=== PATIENT | male | born 1985 | race Caucasian/White ===

== ENCOUNTER 2019-02-14 09:15 | Emergency (ER) | payer MEDICAID ==
[~2019-02-14] VITALS: Ht 172.7 cm; Wt 73.5 kg
[2019-02-14 11:54] VITALS: BP 127/73
== END 2019-02-14 13:04 | disposition home or self-care (01) ==
LOC: ED 10:30
DX: L02.415 Cutaneous abscess of right lower limb (principal); L03.115 Cellulitis of right lower limb; F17.200 Nicotine dependence, unspecified, uncomplicated
CPT/HCPCS: 10060; 96365; 99284

== ENCOUNTER 2019-02-16 06:59 | Emergency (ER) | payer MEDICAID ==
[~2019-02-16] VITALS: Ht 172.7 cm; Wt 74.7 kg
[2019-02-16 07:05] VITALS: BP 122/76
== END 2019-02-16 07:27 | disposition home or self-care (01) ==
LOC: ED 07:17
DX: L02.415 Cutaneous abscess of right lower limb (principal)
CPT/HCPCS: 99283

== ENCOUNTER 2019-02-19 08:47 | Emergency (ER) | payer MEDICAID ==
[~2019-02-19] VITALS: Ht 172.7 cm; Wt 77.3 kg
[2019-02-19 08:50] VITALS: BP 114/55
== END 2019-02-19 09:27 | disposition home or self-care (01) ==
LOC: ED 09:15
DX: Z48.01 Encounter for change or removal of surgical wound dressing (principal); Z88.8 Allergy status to other drugs, medicaments and biological substances
CPT/HCPCS: 99281

== ENCOUNTER 2020-03-15 14:13 | Emergency (ER) | payer MEDICAID ==
[~2020-03-15] VITALS: Ht 172.7 cm; Wt 70.3 kg
[2020-03-15 14:22] VITALS: BP 146/87
--- NOTE | 2020-03-15 14:48 | NUR ---
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 LILIANA
[2020-03-15 15:23] LABS: BASOPHILS # (AUTO) 0.03 x10^3/uL (0-0.1); BASOPHILS % (AUTO) 0 % (0-1); EOSINOPHILS # (AUTO) 0.13 x10^3/uL (0-0.4); EOSINOPHILS % (AUTO) 2 % (1-7); LYMPHOCYTES # (AUTO) 3.75 x10^3/uL (1-3.4); LYMPHOCYTES % (AUTO) 42 % (22-44); MD NO; MEAN CORPUSCULAR HEMOGLOBIN 28.7 pg (27.5-34.5); MEAN CORPUSCULAR HGB CONC 32.9 g/dL (33.2-36.2); MEAN CORPUSCULAR VOLUME 87.2 fL (81-97); MEAN PLATELET VOLUME 7.2 fL (7.4-10.4); MONOCYTES # (AUTO) 0.56 x10^3/uL (0.2-0.8); MONOCYTES % (AUTO) 6 % (2-9); NEUTROPHILS # (AUTO) 4.36 x10^3/uL (1.8-6.8); NEUTROPHILS % (AUTO) 49 % (42-75); PLATELET COUNT 304 x10^3/uL (130-400); RED CELL DISTRIBUTION WIDTH 14.1 % (9.4-14.8)
[2020-03-15] MEDS ORDERED: LORazepam 1MG TABLET PO ONE (15:30)
[2020-03-15] MEDS ORDERED: ONDANSETRON ODT 4 MG PO ONE (15:30)
[2020-03-15 15:35] LABS: ALANINE AMINOTRANSFERASE 19 U/L (12-78); ALBUMIN 3.8 g/dL (3.4-5.0); ANION GAP 9 mmol/L (5-15); CALCIUM 8.9 mg/dL (8.5-10.1); CHLORIDE 112 mmol/L (98-107); CREATININE 0.84 mg/dL (0.7-1.3); SALICYLATE LEVEL 3.2 mg/dL (2.8-20.0)
[2020-03-15 15:37] LABS: ALKALINE PHOSPHATASE 83 U/L (45-117); BILIRUBIN,TOTAL 0.3 mg/dL (0.2-1.0); TOTAL PROTEIN 6.8 g/dL (6.4-8.2)
--- NOTE | 2020-03-15 15:43 | NUR ---
PT AWARE OF NEED FOR URINE SAMPLE. STATES HE IS UNABLE TO PROVIDE ONE DUE TO NOT DRINKING MUCH FOR THE PAST FEW DAYS. PROVIDED WITH BOTTLED JENNINGS AND JUICE PER REQUEST. URINE CUP REMAINS AT BEDSIDE. CALL LIGHT IN REACH.
[2020-03-15] MEDS ORDERED: LORazepam 1MG TABLET ONE (15:48)
[2020-03-15] MEDS ORDERED: ONDANSETRON ODT 4 MG ONE (15:48)
== END 2020-03-15 16:27 | disposition home or self-care (01) ==
LOC: ED 14:58
DX: F11.10 Opioid abuse, uncomplicated (principal); R00.0 Tachycardia, unspecified; F17.200 Nicotine dependence, unspecified, uncomplicated
CPT/HCPCS: 36415; 80053; 80307; 85025; 99283; Q0162

== ENCOUNTER 2020-03-29 16:16 | Emergency (ER) | payer MEDICAID ==
[~2020-03-29] VITALS: Ht 172.7 cm; Wt 70.0 kg
[2020-03-29 16:17] VITALS: BP 134/84
--- NOTE | 2020-03-29 16:23 | NUR ---
PT VERBALIZED "I CAN MAKE A QUICK BUCKET IN 10 MINUTES, DO YOU THINK YOU GUYS CAN GET ME IN AND OUT IN 10MINUTES?" PT INFORMED UNLIKELY AND HE CAN LEAVE IF HE WANTED TO BUT HAD CHECKED IN AND WOULD NEED TO CHECK IN AGAIN.
== END 2020-03-29 17:51 | disposition home or self-care (01) ==
LOC: ED 17:45
DX: R23.4 Changes in skin texture (principal); R51 Headache; F17.210 Nicotine dependence, cigarettes, uncomplicated
CPT/HCPCS: 87070; 87077; 87147; 87186; 87205; 99283

== ENCOUNTER 2020-04-01 22:44 | Emergency (ER) | payer MEDICAID ==
[~2020-04-01] VITALS: Ht 175.3 cm; Wt 70.9 kg
[2020-04-01 23:10] VITALS: BP 144/83
[2020-04-02] MEDS ORDERED: SODIUM CHLORIDE FLUSH 10ML SYR IVF ONE
[2020-04-02 00:28] LABS: BASOPHILS # (AUTO) 0.06 x10^3/uL (0-0.1); BASOPHILS % (AUTO) 0 % (0-1); EOSINOPHILS # (AUTO) 0.31 x10^3/uL (0-0.4); EOSINOPHILS % (AUTO) 2 % (1-7); LYMPHOCYTES % (AUTO) 26 % (22-44); MD NO; MEAN CORPUSCULAR HEMOGLOBIN 28.6 pg (27.5-34.5); MEAN CORPUSCULAR HGB CONC 32.7 g/dL (33.2-36.2); MEAN CORPUSCULAR VOLUME 87.3 fL (81-97); MONOCYTES # (AUTO) 0.86 x10^3/uL (0.2-0.8); MONOCYTES % (AUTO) 6 % (2-9); NEUTROPHILS # (AUTO) 9.38 x10^3/uL (1.8-6.8); NEUTROPHILS % (AUTO) 65 % (42-75); PLATELET COUNT 314 x10^3/uL (130-400); RED BLOOD COUNT 5.08 x10^6/uL (4.38-5.82); RED CELL DISTRIBUTION WIDTH 14.1 % (9.4-14.8)
[2020-04-02 00:34] LABS: ALBUMIN 3.6 g/dL (3.4-5.0); ANION GAP 8 mmol/L (5-15); CALCIUM 9.1 mg/dL (8.5-10.1); CHLORIDE 109 mmol/L (98-107); CREATININE 1.08 mg/dL (0.7-1.3)
--- NOTE | 2020-04-02 02:11 | NUR ---
PT CALLED FOR ROOM, NOT IN LOBBY, BATHROOM CHECKED, OUTSIDE CHECKED.
--- NOTE | 2020-04-02 03:00 | NUR ---
PT CALLED FROM LOBBY, NOT THERE.
--- NOTE | 2020-04-02 03:14 | NUR ---
PT NOT IN LOBBY AT THIS TIME
== END 2020-04-02 03:16 | disposition left against medical advice (07) ==
LOC: ED 04-02 03:00
DX: L03.211 Cellulitis of face (principal)
CPT/HCPCS: 36415; 80048; 82040; 85025; 87040; 99283

== ENCOUNTER 2020-04-02 14:00 | Inpatient (IN) | payer MEDICAID ==
[~2020-04-02] VITALS: Ht 172.7 cm; Wt 71.0 kg
--- NOTE | 2020-04-02 14:40 | NUR ---
First contact with pt. Pt c/o L sided facial cellulitis x2 weeks. Pt states he has been seen in multiple facilites over the last 2 weeks and taken multiple different courses of abx without relief. 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 Pt speaking in full sentences, resp even and unlabored, NADN. Pt with redness and swelling over L cheekbone. Pt reports no changes in respiratory effort or vision. POC discussed with pt. Pt denies other needs.
[2020-04-02] MEDS ORDERED: CLINDAMYCIN PMX 600MG/50ML 50 ML IV ONE (15:30)
[2020-04-02] MEDS ORDERED: SODIUM CHLORIDE FLUSH 10ML SYR IVF ONE (15:30)
[2020-04-02] MEDS ORDERED: SODIUM CHLORIDE 0.9% 1,000ML IVBOLUS ONE (15:30)
[2020-04-02] MEDS ORDERED: CLINDAMYCIN PMX 600MG/50ML 50 ML ONE (15:43)
[2020-04-02 16:04] LABS: BASOPHILS # (AUTO) 0.05 x10^3/uL (0-0.1); BASOPHILS % (AUTO) 1 % (0-1); EOSINOPHILS # (AUTO) 0.18 x10^3/uL (0-0.4); EOSINOPHILS % (AUTO) 2 % (1-7); LYMPHOCYTES # (AUTO) 3.21 x10^3/uL (1-3.4); LYMPHOCYTES % (AUTO) 31 % (22-44); MD NO; MEAN CORPUSCULAR HEMOGLOBIN 28.6 pg (27.5-34.5); MEAN CORPUSCULAR HGB CONC 32.5 g/dL (33.2-36.2); MEAN CORPUSCULAR VOLUME 87.9 fL (81-97); MEAN PLATELET VOLUME 7.3 fL (7.4-10.4); MONOCYTES # (AUTO) 0.87 x10^3/uL (0.2-0.8); MONOCYTES % (AUTO) 8 % (2-9); NEUTROPHILS # (AUTO) 6.17 x10^3/uL (1.8-6.8); NEUTROPHILS % (AUTO) 59 % (42-75); PLATELET COUNT 315 x10^3/uL (130-400)
[2020-04-02 16:10] LABS: ANION GAP 8 mmol/L (5-15); CALCIUM 9.5 mg/dL (8.5-10.1); CHLORIDE 106 mmol/L (98-107); CREATININE 0.91 mg/dL (0.7-1.3)
--- NOTE | 2020-04-02 16:12 | NUR ---
IV abx initiated after blood cultures collected. Pt resting in bed, restless but cooperative and plesant. Pt denies other needs.
[2020-04-02] MEDS ORDERED: OMNIPAQUE 350 MG/ML, 75ML BOTTLE ONE (17:01)
[2020-04-02] MEDS ORDERED: VANCOMYCIN PER PHARMACY MC PRN ×2 (18:00→19:00)
[2020-04-02] MEDS ORDERED: VANCOMYCIN 1,700 MG in SODIUM CHLORIDE 0.9% 250 ML IV ONE (18:00)
--- NOTE | 2020-04-02 18:15 | NUR ---
Pt resting in bed, NADN, denies needs.
--- NOTE | 2020-04-02 18:41 | NUR ---
TASK RN: IV ABX STARTED PER SEP. 2 SETS BLOOD CX COLLECTED PRIOR TO ADMIN. PT RESTING ON [facility]. NADN. DENIES NEEDS AT THIS TIME.
[2020-04-02] MEDS ORDERED: BISACODYL 10 MG SUPP PR PRN (19:00)
[2020-04-02] MEDS ORDERED: ONDANSETRON ODT 4 MG PO PRN (19:00)
[2020-04-02] MEDS ORDERED: POLYETHYLENE GLYCOL 17 GM PACKET PO PRN (19:00)
[2020-04-02] MEDS ORDERED: ACETAMINOPHEN 325 MG TABLET PO PRN (19:00)
--- NOTE | 2020-04-02 19:56 | NUR ---
Meal tray provided, pt having difficult time sitting still, encouraged to please be mindful of IV. Pt reminded of the serious nature of condition, pt verbalizes understanding.
[2020-04-02 21:30] VITALS: BP 119/68
[2020-04-02] MEDS ORDERED: PHARMACOKINETIC MONITORING MC PRN (22:30)
[2020-04-02] MEDS ORDERED: PHARMACOKINETIC CONSULTATION MC ONE (22:30)
[2020-04-02] MEDS: SODIUM CHLORIDE FLUSH 10ML SYR IVF SCH (23:29)
[2020-04-02] MEDS: AMPICILLIN/SULBACTAM 3 GM in SODIUM CHLORIDE 0.9% 100 ML IV SCH (23:29)
[2020-04-03 01:06] VITALS: BP 104/67
[2020-04-03] MEDS: AMPICILLIN/SULBACTAM 3 GM in SODIUM CHLORIDE 0.9% 100 ML IV SCH ×4 (04:58→23:06)
[2020-04-03 05:25] LABS: BASOPHILS # (AUTO) 0.05 x10^3/uL (0-0.1); BASOPHILS % (AUTO) 1 % (0-1); EOSINOPHILS # (AUTO) 0.33 x10^3/uL (0-0.4); EOSINOPHILS % (AUTO) 4 % (1-7); LYMPHOCYTES # (AUTO) 2.76 x10^3/uL (1-3.4); LYMPHOCYTES % (AUTO) 34 % (22-44); MD NO; MEAN CORPUSCULAR HEMOGLOBIN 28.5 pg (27.5-34.5); MEAN CORPUSCULAR HGB CONC 32.6 g/dL (33.2-36.2); MEAN CORPUSCULAR VOLUME 87.5 fL (81-97); MEAN PLATELET VOLUME 7.3 fL (7.4-10.4); MONOCYTES # (AUTO) 0.77 x10^3/uL (0.2-0.8); MONOCYTES % (AUTO) 9 % (2-9); NEUTROPHILS # (AUTO) 4.28 x10^3/uL (1.8-6.8); NEUTROPHILS % (AUTO) 52 % (42-75); PLATELET COUNT 296 x10^3/uL (130-400); RED BLOOD COUNT 4.89 x10^6/uL (4.38-5.82); RED CELL DISTRIBUTION WIDTH 14.3 % (9.4-14.8)
[2020-04-03 05:38] LABS: ANION GAP 7 mmol/L (5-15); CHLORIDE 112 mmol/L (98-107)
[2020-04-03] MEDS: VANCOMYCIN 1,400 MG in SODIUM CHLORIDE 0.9% 250 ML IV SCH ×2 (05:45→17:49)
[2020-04-03 06:19] LABS: AMPHETAMINE SCREEN, URINE Positive (Negative); BARBITURATE SCREEN, URINE Negative (Negative); BENZODIAZEPINE SCREEN, URINE Negative (Negative); CANNABINOID SCREEN, URINE Negative (Negative); OPIATE SCREEN, URINE Negative (Negative)
[2020-04-03 06:22] LABS: COCAINE SCREEN, URINE Negative (Negative); METHADONE SCREEN, URINE Negative (Negative)
[2020-04-03] MEDS: SODIUM CHLORIDE FLUSH 10ML SYR IVF SCH ×2 (08:27→23:06)
[2020-04-03 08:58] VITALS: BP 105/64
[2020-04-03] MEDS ORDERED: SENNA/DOCUSATE TABLET PO SCH (09:00)
[2020-04-03] MEDS ORDERED: ENOXAPARIN 40 MG/0.4 ML SQ SCH (12:30)
[2020-04-03 12:41] VITALS: BP 111/61
[2020-04-03 20:00] VITALS: BP 109/66
== END 2020-04-04 04:30 | disposition left against medical advice (07) | DRG 603 ==
LOC: ED 16:31 → EDIP 17:45 → 3N 21:22
PROVIDERS: ADMIT Hospitalist; ATTEND Family Medicine
DX: L03.211 Cellulitis of face (principal); F15.10 Other stimulant abuse, uncomplicated; F11.10 Opioid abuse, uncomplicated; F17.200 Nicotine dependence, unspecified, uncomplicated; Z86.14 Personal history of Methicillin resistant Staphylococcus aureus infection; Z59.0 Homelessness; Z88.8 Allergy status to other drugs, medicaments and biological substances; Z71.6 Tobacco abuse counseling
CPT/HCPCS: 36415; 70487; 80048; 80307; 82040; 83605; 85025; 87040; 96365; 96375; G0378; J0295; J3370; Q9967; J7030; J7050

== ENCOUNTER 2020-10-19 00:52 | Emergency (ER) | payer SELFPAY ==
[~2020-10-19] VITALS: Ht 172.7 cm; Wt 78.0 kg
[2020-10-19 00:54] VITALS: BP 128/72
[2020-10-19] MEDS ORDERED: CEPHALEXIN 500 MG CAPSULE ONE (01:24)
[2020-10-19] MEDS ORDERED: SULFAMETH./TRIMETHOPRIM DS 800MG/160MG TABLET ONE (01:24)
[2020-10-19] MEDS ORDERED: SULFAMETH./TRIMETHOPRIM DS 800MG/160MG TABLET PO ONE (01:30)
[2020-10-19] MEDS ORDERED: CEPHALEXIN 500 MG CAPSULE PO ONE (01:30)
== END 2020-10-19 01:44 | disposition home or self-care (01) ==
LOC: ED 01:22
DX: L02.811 Cutaneous abscess of head [any part, except face] (principal)
CPT/HCPCS: 99283

== ENCOUNTER 2020-10-21 14:08 | Emergency (ER) | payer SELFPAY ==
[~2020-10-21] VITALS: Ht 172.7 cm; Wt 76.8 kg
[2020-10-21 14:10] VITALS: BP 118/77
--- NOTE | 2020-10-21 15:16 | NUR ---
Patient given verbal discharge instructions and they have confirmed that they understand the instructions. Patient ambulatory with steady gait & left prior to receiving written DC instr/Rx.
== END 2020-10-21 15:18 | disposition home or self-care (01) ==
LOC: ED 15:10
DX: L98.9 Disorder of the skin and subcutaneous tissue, unspecified (principal); Z76.0 Encounter for issue of repeat prescription
CPT/HCPCS: 99281